=== PATIENT | female | born 1955 | race Caucasian/White ===

== ENCOUNTER → 2016-10-14 | Outpatient (CLI) | payer BC ==
--- NOTE | 2016-10-14 10:43 | REPMRS ---
Patient History The patient states she had a clinical breast exam in 10/2016. Patient is postmenopausal. Family history of prostate cancer in father at age 50 or over, prostate cancer in paternal grandfather at age 50 or over, breast cancer in maternal aunt at age 50 or over, breast cancer in maternal grandmother at age 50 or over, and colorectal cancer in maternal uncle. Digital Woman Screen Mammo: October 14, 2016 - Exam #: [id number] Bilateral CC and MLO view(s) were taken. Technologist: Lyudmila Alba, Technologist Prior study comparison: October 09, 2015, digital woman screen mammo performed at [facility]. February 14, 2014, digital woman screen mammo performed at [facility]. FINDINGS: There are scattered fibroglandular densities. There has been no change in the appearance of the mammogram from the prior studies. There is a mild amount of residual fibroglandular tissue which is fairly symmetric. There is no interval development of dominant mass, architectural distortion, or clustered microcalcification suggestive of malignancy. ASSESSMENT: BI-RADS/ACR category 1 mammogram. Negative. Recommendation Routine screening mammogram in 1 year (for women over age 40). This mammogram was interpreted with the aid of an FDA-approved computer-aided dectection system. Electronically Signed By: Lucio Watson MD 10/14/16 [id number]
== END ==
LOC: M WHC 08:55
PROVIDERS: ATTEND Nurse Practitioner Women's Health
DX: Z12.31 Encounter for screening mammogram for malignant neoplasm of breast (principal)

== ENCOUNTER 2017-11-19 07:41 | Day surgery (SDC) | payer OTHER ==
[2017-11-19] MEDS: dexameTHASONE 4 MG/ML 1ML VIAL (J1100) As Ordered (06:39)
[~2017-11-19 07:41] MED LIST: LR 1,000 ML IV
[2017-11-19] MEDS ORDERED: ONDANSETRON 4MG/2ML VIAL (J2405) As Ordered (08:04)
[2017-11-19] MEDS ORDERED: LIDOCAINE 2% INJ 100 MG/5 ML SDV (FOR ANES.) As Ordered (08:04)
[2017-11-19] MEDS ORDERED: PROPOFOL 200 MG/20 ML VIAL As Ordered ×2 (08:04→08:05)
[2017-11-19] MEDS ORDERED: fentaNYL 100 MCG/2 ML INJECTION (J3010) As Ordered (08:04)
[2017-11-19] MEDS ORDERED: MIDAZOLAM INJ 2 MG/2 ML VIAL (J2250) As Ordered (08:05)
[2017-11-19] MEDS: LR 1,000 ML IV (08:40)
[2017-11-19] MEDS: LIDOCAINE 1% SDV INJ 30 ML VIAL As Ordered (09:35)
[2017-11-19] MEDS: BUPIVACAINE HCL 0.5% 10 ML VIAL As Ordered (09:35)
== END 2017-11-19 11:27 | disposition home or self-care (01) ==
LOC: M SDC 07:41
DX: M20.41 Other hammer toe(s) (acquired), right foot (principal); E03.9 Hypothyroidism, unspecified; E04.1 Nontoxic single thyroid nodule; K59.00 Constipation, unspecified; R06.83 Snoring; N28.9 Disorder of kidney and ureter, unspecified; J44.9 Chronic obstructive pulmonary disease, unspecified; F32.9 Major depressive disorder, single episode, unspecified; E78.5 Hyperlipidemia, unspecified; K58.9 Irritable bowel syndrome, unspecified; E66.9 Obesity, unspecified; M17.9 Osteoarthritis of knee, unspecified; G47.00 Insomnia, unspecified; E55.9 Vitamin D deficiency, unspecified; Z88.5 Allergy status to narcotic agent; Z79.899 Other long term (current) drug therapy; Z52.4 Kidney donor
CPT/HCPCS: 28285

== ENCOUNTER 2018-08-17 08:45 | Day surgery (SDC) | payer BC ==
[~2018-08-17] VITALS: Ht 157.5 cm; Wt 72.6 kg
[~2018-08-17 08:45] MED LIST changes: +ACETAMINOPHEN 325 MG TAB PO PRN; +ACID100C PO; +BSS with VANC/TOB/EPI for EYE CASES IR ONE; +CALC1TAB40 PO; +CETI10CH PO; +CYCLOPENTOLATE 2% OPHTH SOLN 2ML BTL OS ONE; +FLUO20CA8 PO; +HEALON DUET PRO(HEALON 10MG/ML 0.55ML & HEALON ENDOCOAT 30MG/ML 0.85ML) As Ordered ONE; +HYDR-3713 PO; +LEVO150T7 PO; +LIDOCAINE 1% SDV 5 ML VIAL As Ordered ONE; +LIDOCAINE 3.5 % 1ML OPHTH TOPICAL GEL OU ONE; +LIDOCAINE W/EPINEPHRINE 1% 20ML VIAL As Ordered ONE; -LR 1,000 ML IV; +MELA10CA PO; +MIDAZOLAM INJ 2 MG/2 ML VIAL (J2250) As Ordered ONE; +MOXIFLOXACIN IN BSS 0.25MG/0.25ML INTRACAMERAL INJ (OR EYE ONLY)(J2280) As Ordered ONE; +MULT1TAB10 PO; +MULTCAP PO; +OFLOXACIN 0.3 % (OCUFLOX) OPTH SOL 5ML OS ONE; +ONDA4TAB6 PO; +PHENYLEPHRINE 2.5% OPHTH SOL 2ML OS ONE; +PHENYLEPHRINE HCL 10 % OPHTH. SOL 5ML OS PRN; +POVIDONE-IODINE 5% OPHTH PREP SOL 30ML As Ordered ONE; +SYNT137T7 PO; +TRIAMCINOLONE PRES FR 40 MG/ML 1ML(TRIESENCE)(OR EYE ONLY)(J3300 PER 1MG) As Ordered ONE; +TROPICAMIDE 1% OPHTH SOLN 2ML OS ONE; +TYLE1TAB5 PO; +VITA100067 PO; +VITA500T PO; +VITAD1000T PO; +VITATAB73 PO; +[UNRECOGNIZED DRUG - CODE] PO; +fentaNYL 100 MCG/2 ML INJECTION (J3010) As Ordered ONE
[2018-08-17] MEDS ORDERED: POVIDONE-IODINE 5% OPHTH PREP SOL 30ML As Ordered ONE (11:14)
[2018-08-17] MEDS ORDERED: LIDOCAINE 2% W/EPIN INJ 20ML **PRES FREE As Ordered ONE (11:16)
[2018-08-17 11:55] VITALS: BP 125/67
[2018-08-17] MEDS ORDERED: TRIMETHOBENZAMIDE 300 MG CAP PO PRN (12:00)
[2018-08-17] MEDS ORDERED: AcetaZOLAMIDE 500 MG ER CAP PO ONE (12:00)
== END 2018-08-17 12:02 | disposition home or self-care (01) ==
LOC: M SDC 08:45
PROVIDERS: ATTEND Ophthalmology
DX: H25.9 Unspecified age-related cataract (principal); E78.5 Hyperlipidemia, unspecified; E03.9 Hypothyroidism, unspecified; K58.8 Other irritable bowel syndrome; F32.9 Major depressive disorder, single episode, unspecified; Z79.899 Other long term (current) drug therapy; Z87.891 Personal history of nicotine dependence
CPT/HCPCS: 66984; 92015; J2250; J2280; J3010; J3300

== ENCOUNTER 2018-09-14 06:16 | Day surgery (SDC) | payer BC, MEDICARE, OTHER ==
[~2018-09-14] VITALS: Ht 160 cm; Wt 75.7 kg
[~2018-09-14 06:16] MED LIST changes: -ACETAMINOPHEN 325 MG TAB PO PRN; -BSS with VANC/TOB/EPI for EYE CASES IR ONE; -CYCLOPENTOLATE 2% OPHTH SOLN 2ML BTL OS ONE; -HEALON DUET PRO(HEALON 10MG/ML 0.55ML & HEALON ENDOCOAT 30MG/ML 0.85ML) As Ordered ONE; -LIDOCAINE 1% SDV 5 ML VIAL As Ordered ONE; -LIDOCAINE 3.5 % 1ML OPHTH TOPICAL GEL OU ONE; -LIDOCAINE W/EPINEPHRINE 1% 20ML VIAL As Ordered ONE; -MIDAZOLAM INJ 2 MG/2 ML VIAL (J2250) As Ordered ONE; -MOXIFLOXACIN IN BSS 0.25MG/0.25ML INTRACAMERAL INJ (OR EYE ONLY)(J2280) As Ordered ONE; -OFLOXACIN 0.3 % (OCUFLOX) OPTH SOL 5ML OS ONE; -PHENYLEPHRINE 2.5% OPHTH SOL 2ML OS ONE; -PHENYLEPHRINE HCL 10 % OPHTH. SOL 5ML OS PRN; -POVIDONE-IODINE 5% OPHTH PREP SOL 30ML As Ordered ONE; -TRIAMCINOLONE PRES FR 40 MG/ML 1ML(TRIESENCE)(OR EYE ONLY)(J3300 PER 1MG) As Ordered ONE; -TROPICAMIDE 1% OPHTH SOLN 2ML OS ONE; +[UNRECOGNIZED DRUG - CODE] PO; -[UNRECOGNIZED DRUG - CODE] PO; -fentaNYL 100 MCG/2 ML INJECTION (J3010) As Ordered ONE
[2018-09-14] MEDS ORDERED: LIDOCAINE 1% SDV 5 ML VIAL As Ordered ONE (06:48)
[2018-09-14] MEDS ORDERED: MOXIFLOXACIN IN BSS 0.25MG/0.25ML INTRACAMERAL INJ (OR EYE ONLY)(J2280) As Ordered ONE (06:48)
[2018-09-14] MEDS ORDERED: TRIAMCINOLONE PRES FR 40 MG/ML 1ML(TRIESENCE)(OR EYE ONLY)(J3300 PER 1MG) As Ordered ONE (06:48)
[2018-09-14] MEDS ORDERED: POVIDONE-IODINE 5% OPHTH PREP SOL 30ML As Ordered ONE (06:48)
[2018-09-14] MEDS ORDERED: HEALON DUET PRO(HEALON 10MG/ML 0.55ML & HEALON ENDOCOAT 30MG/ML 0.85ML) As Ordered ONE (06:48)
[2018-09-14] MEDS ORDERED: fentaNYL 100 MCG/2 ML INJECTION (J3010) As Ordered ONE (06:55)
[2018-09-14] MEDS ORDERED: ONDANSETRON 4MG/2ML VIAL (J2405) As Ordered ONE (06:55)
[2018-09-14] MEDS ORDERED: MIDAZOLAM INJ 2 MG/2 ML VIAL (J2250) As Ordered ONE (06:55)
[2018-09-14] MEDS ORDERED: TROPICAMIDE 1% OPHTH SOLN 2ML OD ONE (07:00)
[2018-09-14] MEDS ORDERED: OFLOXACIN 0.3 % (OCUFLOX) OPTH SOL 5ML OD ONE (07:00)
[2018-09-14] MEDS ORDERED: BSS with VANC/TOB/EPI for EYE CASES IR ONE (07:00)
[2018-09-14] MEDS ORDERED: LIDOCAINE 3.5 % 1ML OPHTH TOPICAL GEL OU ONE (07:00)
[2018-09-14] MEDS ORDERED: CYCLOPENTOLATE 2% OPHTH SOLN 2ML BTL OD ONE (07:00)
[2018-09-14] MEDS ORDERED: PHENYLEPHRINE 2.5% OPHTH SOL 2ML OD ONE (07:00)
[2018-09-14] MEDS ORDERED: PHENYLEPHRINE HCL 10 % OPHTH. SOL 5ML OD PRN (07:00)
[2018-09-14] MEDS ORDERED: LIDOCAINE PRES-FREE 2% 10ML AMP XX ONE (07:46)
[2018-09-14 08:20] VITALS: BP 145/79
--- NOTE | 2018-09-14 12:04 | RO ---
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 PROCEDURE: Phacoemulsification with intraocular lens implantation of [id number] with the help of Malyugin ring, 7 mm. SURGEON: Lisa Torres MD SELF PROPELLED MINING MACHINE OPERATOR: None. ANESTHESIA: COMPLICATIONS: None. PROCEDURE IN DETAIL: Patient was brought to the operating room, laid in supine position. The right eye was prepped and draped in a sterile fashion for ophthalmic surgery and a lid speculum was placed. Side port incision was made and EndoCoat was injected into the anterior chamber. Temporal clear corneal incision was then made with a 2.5 mm keratome. Malyugin ring 7 mm was then to introduced to dilate the pupil with the help of the Malyugin hook. After this was done, capsulorrhexis was performed with the help of the Cystotome and capsulorrhexis forceps followed by hydrodissection with balanced salt solution. Phacoemulsification was done in a divide and conquer method followed by aspiration of the cortical material using irrigation and aspiration cannula. Healon was then placed in the capsular bag and intraocular lens inserted The Malyugin ring was then removed with the help of the Malyugin hook. Excess viscoelastic was aspirated. The wound was hydrated. Intracameral moxifloxacin and sub-Tenon triamcinolone was given. The wound was hydrated and no leaks were noted. The lid speculum was removed and the patient returned to the recovery room in stable condition.
== END 2018-09-14 08:40 | disposition home or self-care (01) ==
LOC: M SDC 06:16
PROVIDERS: ATTEND Ophthalmology
DX: H26.9 Unspecified cataract (principal); H57.03 Miosis; E03.9 Hypothyroidism, unspecified; E78.5 Hyperlipidemia, unspecified; K58.9 Irritable bowel syndrome, unspecified; M12.9 Arthropathy, unspecified; F32.9 Major depressive disorder, single episode, unspecified; R06.83 Snoring; Z88.5 Allergy status to narcotic agent; Z79.899 Other long term (current) drug therapy; Z78.0 Asymptomatic menopausal state; Z98.42 Cataract extraction status, left eye; Z87.81 Personal history of (healed) traumatic fracture
CPT/HCPCS: 66982; 92015; J2250; J2280; J2405; J3010; J3300; V2632

== ENCOUNTER → 2018-11-17 | Outpatient (CLI) | payer MEDICARE ==
[~2018-11-17] MED LIST changes: +CHOL100029 PO; +FLUO20CA20 PO; -FLUO20CA8 PO; -VITAD1000T PO
--- NOTE | 2018-11-17 08:53 | REP ---
BILATERAL SCREENING DIGITAL MAMMOGRAM WITH 3D TOMOSYNTHESIS: There are no palpable abnormalities or other breast complaints. The the patient states she had a clinical breast examination October 20, 2018. The the patient states she performs self-breast examinations six times per year. The Tyrer-Cuzick Score is: 12.7% . Comparisons are 01/14/2012, 10/09/2015 and 10/14/2016. There are scattered areas of fibroglandular density. There is no dominant mass, micro calcific cluster or architectural distortion that would indicate malignancy. There are scattered benign calcifications. There are no additional findings on 3D tomosynthesiss. There is no change from the prior study. Impression: BIRADS/ACR category 2 mammogram. Benign findings. Recommendation: Routine annual screening mammography. This mammogram was interpreted with the aid of a FDA approved computer-aided detection system. A. Negative mammogram reports should not delay biopsy if a dominant or clinically suspicious mass is present. B. Not all breast cancers are identified by mammography or tomosynthesis. C. Adenosis and dense breasts may obscure an underlying neoplasm. Patient letter M1. Electronically Signed by Lucio Story MD 11/17/2018 08:46 A
--- NOTE | 2018-11-19 09:38 | DEXA ---
AP SPINE L1 - L4 1.063 -1.1 0.5 LT FEMUR TOTAL 0.773 -1.9 -0.7 LT NECK 0.727 -2.2 -0.8 RT FEMUR TOTAL 0.715 -2.3 -1.1 RT NECK 0.656 -2.7 -1.1 TOTAL BODY TOTAL OTHER COMMENTS: There is low bone density of the spine. There is low bone density of the left hip. There is osteoporosis of the right hip. FOLLOW-UP: Recommendation for the next bone density exam: 2 years. IAN
== END ==
LOC: M WHC 07:05
PROVIDERS: ATTEND Nurse Practitioner Women's Health
DX: Z12.31 Encounter for screening mammogram for malignant neoplasm of breast (principal); Z13.820 Encounter for screening for osteoporosis